=== PATIENT | male | born 1965 | race Caucasian/White ===

== ENCOUNTER 2018-03-07 08:32 | Outpatient (CLI) | payer OTHER ==
[2018-03-07] MEDS ORDERED: Iopamidol 370 76% 100 ML VIAL ONE (09:40)
== END 2018-03-07 08:33 | disposition home or self-care (01) ==
LOC: BICCT 08:32
PROVIDERS: ATTEND Internal Medicine Gastroenterology
DX: C18.9 Malignant neoplasm of colon, unspecified (principal); K43.5 Parastomal hernia without obstruction or gangrene; Z90.2 Acquired absence of lung [part of]; Z93.2 Ileostomy status; Z98.890 Other specified postprocedural states
CPT/HCPCS: 71260; 74177